=== PATIENT | male | born 1985 | race Caucasian/White ===

== ENCOUNTER 2019-06-30 13:19 | Day surgery (SDC) | payer MEDICAID ==
[~2019-06-30] VITALS: Ht 180.3 cm; Wt 159.0 kg
[2019-06-30] VITALS (8 sets, daily range): BP systolic 167–196; BP diastolic 106–138
[2019-06-30] MEDS ORDERED: AMLO5TAB PO (13:40)
[2019-06-30] MEDS ORDERED: HYDR-3965 PO (13:41)
[2019-06-30] MEDS ORDERED: fentaNYL/PF 50MCG/1 ML 2ML syringe ONE (14:02)
[2019-06-30] MEDS ORDERED: LIDOcaine Viscous 15ml cup ONE (14:03)
[2019-06-30] MEDS ORDERED: diphenhydrAMINE 50 mg/ml inj ONE (14:03)
[2019-06-30] MEDS ORDERED: glucagon, human recombinant 1mg kit ONE (14:03)
[2019-06-30] MEDS ORDERED: iohexol 300 MG/1 ML 50ml polymer ONE (14:03)
[2019-06-30] MEDS ORDERED: MIDAZolam 5mg/5ml vial ONE (14:03)
[2019-06-30 14:26] LABS: BASOPHILS % (AUTO) 0.9 % (0-1); EOSINOPHILS # (AUTO) 0.1 X10'3 (0-0.9); EOSINOPHILS % (AUTO) 1.8 % (0-6); LYMPHOCYTES # (AUTO) 1.5 X10'3 (1.1-4.8); LYMPHOCYTES % (AUTO) 27.9 % (21-51); MEAN CORPUSCULAR HEMOGLOBIN 31.9 PG (27.0-31.0); MEAN CORPUSCULAR HGB CONC 34.9 g/dL (33.0-36.5); MEAN CORPUSCULAR VOLUME 91.7 FL (78-98); MEAN PLATELET VOLUME 9.9 FL (7.4-10.4); MONOCYTES # (AUTO) 0.5 X10'3 (0-0.9); MONOCYTES % (AUTO) 8.8 % (2-12); NEUTROPHILS # (AUTO) 3.3 X10'3 (1.8-7.7); NEUTROPHILS % (AUTO) 60.6 % (42-75); PRE OP HEMATOCRIT 46.2 % (42.0-52.0); PRE OP HEMOGLOBIN 16.1 g/dL (14.0-17.9); PRE OP PLATELET COUNT 273 X10'3 (140-440); RED BLOOD COUNT 5.04 X10'6 (4.70-6.10); RED CELL DISTRIBUTION WIDTH 13.9 % (11.5-14.5)
[2019-06-30 14:48] LABS: ALANINE AMINOTRANSFERASE 473 U/L (12-78); ALBUMIN 4.2 G/DL (3.4-5.0); ALBUMIN/GLOBULIN RATIO 0.9 (1.1-1.5); ALKALINE PHOSPHATASE 139 IU/L (46-116); ANION GAP 11 (8-16); ASPARTATE AMINO TRANSFERASE 179 U/L (10-37); BLOOD UREA NITROGEN 17 MG/DL (7-18); CALCIUM 9.2 MG/DL (8.5-10.1); CHLORIDE 105 MMOL/L (99-107); CREATININE 0.85 MG/DL (0.60-1.10); GLUCOSE 87 MG/DL (70-104); POTASSIUM 3.8 MMOL/L (3.5-5.1); SODIUM 141 MMOL/L (135-145); TOTAL CARBON DIOXIDE 25.2 MMOL/L (24-32); TOTAL PROTEIN 8.7 G/DL (6.4-8.2); eGFR > 90 ML/MIN
== END 2019-06-30 18:21 | disposition home or self-care (01) ==
LOC: GI LAB 13:19
PROVIDERS: ATTEND Internal Medicine Gastroenterology
DX: K83.8 Other specified diseases of biliary tract (principal); K80.50 Calculus of bile duct without cholangitis or cholecystitis without obstruction
CPT/HCPCS: 36415; 43262; 43264; 80053; 85025; 99152; 99153; C1769; J1200; J1610; J2250; J3010; J7040; Q9967; A4620